=== PATIENT | female | born 1965 | race Hispanic/Latino ===

== ENCOUNTER 2025-11-18 06:28 | Day surgery (SDC) | payer BC, SELFPAY ==
[2025-11-08 11:40] LABS: Hematocrit 42.0 % (37.0-47.0); Hemoglobin 14.2 g/dL (12.0-16.0); Mean Corp Hgb Conc. 33.8 g/dL (33.0-37.0); Mean Corpuscular Volume 89.9 fL (81.0-99.0); Platelet Count 207 10^3/uL (130-400); Red Cell Dist. Width 12.7 % (11.5-14.5)
[2025-11-08 12:27] LABS: Blood Urea Nitrogen 11 mg/dl (7-17); Calcium 9.4 mg/dl (8.4-10.2); Carbon Dioxide 27 mmol/L (22-30); Chloride 106 mmol/L (98-107); Glucose 86 mg/dl (70-99); Potassium 4.5 mmol/L (3.5-5.1); Sodium 140 mmol/L (135-145); eGFR > 60.00
[2025-11-08 12:42] VITALS: BMI 26.7
[2025-11-18] VITALS (10 sets, daily range): BP systolic 120–139; BP diastolic 69–81; BMI 26.7
[2025-11-18] MEDS: CELEBREX 200 MG PO (12:29)
[2025-11-18] MEDS: TYLENOL 1000 MG PO (12:29)
[2025-11-18] MEDS: NORMOSOL-R/PLASMALYTE-A 1000 IV (12:30)
[2025-11-18] MEDS: DILAUDID 0.25 MG IV (15:45)
== END 2025-11-18 17:25 | disposition home or self-care (01) ==
LOC: SDS 06:28
PROVIDERS: ATTENDING PHYSICIAN Student in an Organized Health Care Education/Training Program; FAMILY PHYSICIAN Family Medicine
DX: D16.32 Benign neoplasm of short bones of left lower limb (principal); M76.62 Achilles tendinitis, left leg; M77.52 Other enthesopathy of left foot and ankle; M72.2 Plantar fascial fibromatosis
CPT/HCPCS: 27659; 28118; 27691; 36415; 73600; 76000; 80048; 85027; 88304; 88311; 93005; C1713